=== PATIENT | female | born 1945 | race Caucasian/White ===

== ENCOUNTER 2017-02-13 09:40 | Emergency (ER) | payer MEDICARE, OTHER | END 2017-02-13 11:03 | disposition home or self-care (01) | LOC: D.ER 09:40 | DX: L50.9 Urticaria, unspecified (principal); T78.40XA Allergy, unspecified, initial encounter; X58.XXXA Exposure to other specified factors, initial encounter; E78.5 Hyperlipidemia, unspecified; I10 Essential (primary) hypertension ==

== ENCOUNTER → 2017-08-10 13:16 | Outpatient (CLI) | payer MEDICARE, OTHER | END | disposition home or self-care (01) | LOC: D.MAMMO 11:30 | DX: Z12.31 Encounter for screening mammogram for malignant neoplasm of breast (principal) ==

== ENCOUNTER 2019-04-03 22:36 | Emergency (ER) | payer MEDICARE, OTHER ==
[~2019-04-03] VITALS: Ht 167.6 cm; Wt 84.1 kg
[2019-04-03 22:42] VITALS: Ht 167.6 cm; Wt 84.1 kg
[2019-04-03] MEDS ORDERED: DETROL LA4 MG PO (23:05)
[2019-04-03] MEDS ORDERED: PRAVACHOL20 MG PO (23:07)
[2019-04-03] MEDS ORDERED: TRIAMTERENE-HCT1 TA2 PO (23:07)
[2019-04-03] MEDS ORDERED: LISINOPRIL40 MG PO (23:09)
[2019-04-03 23:14] LABS: APTT 23.9 SECONDS (22.8-39.4); PROTIME 12.7 SECONDS (11.6-15.0)
[2019-04-03 23:22] LABS: BASOPHILS 0.1 % (0-2); EOSINOPHILS 1.9 % (0-7); HEMATOCRIT 43.5 % (36.0-48.0); HEMOGLOBIN 14.8 g/dL (12-16); IMMATURE GRANULOCYTES 0.4 % (0-5); LYMPHOCYTES 29.8 % (15-50); MCV 85.3 fL (80.0-100.0); MEAN PLATELET VOLUME 10.8 fL (7.4-10.4); MONOCYTES 8.5 % (2-11); NEUTROPHILS 59.3 % (40-80); PLATELET COUNT 163 10x3/uL (130-400); RDW 12.7 % (11.5-14.5)
[2019-04-03 23:22] LABS: ALBUMIN 3.7 g/dL (3.4-5.0); ALKALINE PHOSPHATASE 188 U/L (46-116); ALT (SGPT) 45 U/L (10-68); CALC OSMOLALITY 296 mosm/kg (275-300); CALCIUM 9.1 mg/dL (8.5-10.1); CARBON DIOXIDE 26.2 mmol/L (21.0-32.0); CHLORIDE - SERUM 105 mmol/L (98-107); CREATININE - SERUM 1.2 mg/dL (0.6-1.3); GLUCOSE 261 mg/dL (74-106); POTASSIUM - SERUM 4.6 mmol/L (3.5-5.1); PROTEIN - SERUM 7.2 g/dL (6.4-8.2); SODIUM 141 mmol/L (136-145); UREA NITROGEN 33 mg/dL (7-18); eGFR NON AFRICAN AMERICAN 47 mL/min (90-120)
[2019-04-03 23:32] LABS: CKMB 0.8 U/L (0.0-3.6); CREATINE KINASE 82 UL (21-215); MAGNESIUM - SERUM 1.7 mg/dL (1.8-2.4)
[2019-04-03 23:33] LABS: TROPONIN-I < 0.017 ng/mL (0.000-0.060)
[2019-04-04 02:30] VITALS: BP 134/57
== END 2019-04-04 02:30 | disposition other institution (70) ==
LOC: D.ER 22:36
PROVIDERS: Family Medicine
DX: G40.89 Other seizures (principal); R20.0 Anesthesia of skin

== ENCOUNTER 2019-05-02 09:00 | Outpatient (CLI) | payer MEDICARE, OTHER ==
[2019-04-03 22:42] VITALS: BMI 29.9
[~2019-05-02 09:00] MED LIST: DETROL LA4 MG PO; LISINOPRIL40 MG PO; PRAVACHOL20 MG PO; TRIAMTERENE-HCT1 TA2 PO
== END 2019-05-02 10:00 | disposition home or self-care (01) ==
LOC: D.MAMMO 09:00
PROVIDERS: ATTEND Family Medicine
DX: Z12.31 Encounter for screening mammogram for malignant neoplasm of breast (principal)